=== PATIENT | female | born 1970 | race Caucasian/White ===

== ENCOUNTER → 2017-11-20 | Outpatient (CLI) | payer OTHER ==
[~2017-11-20] MED LIST: GABAPENTIN600 MG; PROTONIX20 MG; TEGRETOL200 MG; TIGAN100 MG/M2; TRAZODONE HCL5 GM
== END | disposition home or self-care (01) ==
LOC: WOUND MED 08:05
DX: L97.123 Non-pressure chronic ulcer of left thigh with necrosis of muscle (principal)
CPT/HCPCS: 11042; G0463; A4554; A4930; A6216; A6219

== ENCOUNTER → 2017-12-01 | Outpatient (CLI) | payer OTHER | END | disposition home or self-care (01) | LOC: WOUND CARE 09:19 | DX: L97.123 Non-pressure chronic ulcer of left thigh with necrosis of muscle (principal) | CPT/HCPCS: 11042; A4554; A4930; A6196; A6216; A6219 ==

== ENCOUNTER → 2017-12-08 | Outpatient (CLI) | payer OTHER | END | disposition home or self-care (01) | LOC: WOUND MED 07:52 | DX: L97.123 Non-pressure chronic ulcer of left thigh with necrosis of muscle (principal) | CPT/HCPCS: 11042; A4554; A4930; A6216; A6219 ==

== ENCOUNTER → 2017-12-15 | Outpatient (CLI) | payer OTHER | END | disposition home or self-care (01) | LOC: WOUND MED 08:41 | DX: L97.123 Non-pressure chronic ulcer of left thigh with necrosis of muscle (principal) | CPT/HCPCS: 11042; A4554; A4930; A6196; A6216; A6219 ==

== ENCOUNTER → 2017-12-22 | Outpatient (CLI) | payer OTHER | END | disposition home or self-care (01) | LOC: WOUND MED 08:08 | DX: L97.123 Non-pressure chronic ulcer of left thigh with necrosis of muscle (principal) | CPT/HCPCS: 11042; A4554; A4930; A6216 ==

== ENCOUNTER → 2017-12-29 | Outpatient (CLI) | payer OTHER | END | disposition home or self-care (01) | LOC: WOUND MED 10:00 | DX: L97.123 Non-pressure chronic ulcer of left thigh with necrosis of muscle (principal) | CPT/HCPCS: A4554; A4930; A6216; G0463 ==

== ENCOUNTER → 2018-01-05 | Outpatient (CLI) | payer OTHER | END | disposition home or self-care (01) | LOC: WOUND MED 08:41 → EDSTATUS 08:43 | DX: L97.123 Non-pressure chronic ulcer of left thigh with necrosis of muscle (principal) | CPT/HCPCS: 11042; A4554; A4930; A6216 ==

== ENCOUNTER → 2018-01-12 | Outpatient (CLI) | payer OTHER | END | disposition home or self-care (01) | LOC: WOUND MED 08:25 | DX: L97.123 Non-pressure chronic ulcer of left thigh with necrosis of muscle (principal) | CPT/HCPCS: 11042; A4554; A4930; A6216; A6219 ==

== ENCOUNTER → 2018-01-19 | Outpatient (CLI) | payer OTHER | END | disposition home or self-care (01) | LOC: WOUND MED 08:49 → EDSTATUS 15:34 | DX: L97.123 Non-pressure chronic ulcer of left thigh with necrosis of muscle (principal) | CPT/HCPCS: 11042; A4554; A4930; A6216; A6219 ==

== ENCOUNTER → 2018-01-26 | Outpatient (CLI) | payer OTHER | END | disposition home or self-care (01) | LOC: WOUND MED 08:41 | DX: L97.123 Non-pressure chronic ulcer of left thigh with necrosis of muscle (principal) | CPT/HCPCS: 11042; A4554; A4930; A6216; A6219 ==

== ENCOUNTER → 2018-02-01 | Emergency (ER) | payer OTHER | END | disposition home or self-care (01) | LOC: ER 11:33 | DX: G50.0 Trigeminal neuralgia (principal); R51 Headache ==

== ENCOUNTER → 2018-02-09 | Outpatient (CLI) | payer OTHER | END | disposition home or self-care (01) | LOC: WOUND MED 09:49 | DX: L97.123 Non-pressure chronic ulcer of left thigh with necrosis of muscle (principal) | CPT/HCPCS: 11042; A4554; A4930; A6216; A6219 ==

== ENCOUNTER → 2018-02-23 | Outpatient (CLI) | payer OTHER | END | disposition home or self-care (01) | LOC: WOUND MED 09:18 | DX: L97.123 Non-pressure chronic ulcer of left thigh with necrosis of muscle (principal) | CPT/HCPCS: G0463; A4554; A4930; A6216 ==

== ENCOUNTER → 2018-04-29 | Outpatient (CLI) | payer OTHER ==
[~2018-04-29] MED LIST changes: +CANABI MEDICINAL
== END | disposition home or self-care (01) ==
LOC: WOUND MED 08:22
DX: L97.112 Non-pressure chronic ulcer of right thigh with fat layer exposed (principal)
CPT/HCPCS: 11042; A4554; A4930; A6216; A6219

== ENCOUNTER → 2018-05-07 | Outpatient (CLI) | payer OTHER ==
[~2018-05-07] MED LIST changes: -CANABI MEDICINAL
== END | disposition home or self-care (01) ==
LOC: WOUND MED 09:08
DX: L97.112 Non-pressure chronic ulcer of right thigh with fat layer exposed (principal)
CPT/HCPCS: 11042; A4554; A4930; A6196; A6216; A6219

== ENCOUNTER → 2018-05-17 | Outpatient (CLI) | payer OTHER | END | disposition home or self-care (01) | LOC: WOUND MED 08:32 | DX: L97.112 Non-pressure chronic ulcer of right thigh with fat layer exposed (principal) | CPT/HCPCS: 11042; A4554; A4930; A6216 ==

== ENCOUNTER → 2018-05-24 | Outpatient (CLI) | payer OTHER ==
[~2018-05-24] MED LIST changes: +CANABI MEDICINAL
== END | disposition home or self-care (01) ==
LOC: WOUND MED 09:20
DX: L97.112 Non-pressure chronic ulcer of right thigh with fat layer exposed (principal)
CPT/HCPCS: 11042; A4554; A4930; A6216; A6219

== ENCOUNTER 2018-06-01 09:15 | Emergency (ER) | payer OTHER ==
[~2018-06-01] VITALS: Ht 157.5 cm; Wt 56.7 kg
[~2018-06-01 09:15] MED LIST changes: -CANABI MEDICINAL
[2018-06-01] MEDS ORDERED: CANABI MEDICINAL (09:29)
== END 2018-06-01 11:05 | disposition home or self-care (01) ==
LOC: ER 09:15
DX: G50.0 Trigeminal neuralgia (principal)

== ENCOUNTER 2018-07-01 16:05 | Emergency (ER) | payer OTHER ==
[~2018-07-01] VITALS: Ht 157.5 cm; Wt 72.6 kg
[~2018-07-01 16:05] MED LIST changes: +CANABI MEDICINAL
[2018-07-01] MEDS ORDERED: CLONAZEPAM2 MG PO (18:59)
[2018-07-01] MEDS ORDERED: BACLOFEN20 MG PO (18:59)
== END 2018-07-01 19:33 | disposition home or self-care (01) ==
LOC: ER 16:05
DX: G50.0 Trigeminal neuralgia (principal); G89.29 Other chronic pain

== ENCOUNTER 2018-09-06 09:58 | Emergency (ER) | payer OTHER ==
[~2018-09-06] VITALS: Ht 157.5 cm; Wt 63.0 kg
[~2018-09-06 09:58] MED LIST changes: +BACLOFEN20 MG PO; +CLONAZEPAM2 MG PO
[2018-09-06] MEDS ORDERED: NEURONTIN300 MG PO (10:05)
[2018-09-06] MEDS ORDERED: TRAZODONE HCL100 MG PO (10:06)
== END 2018-09-06 14:07 | disposition home or self-care (01) ==
LOC: ER 09:58
DX: G50.0 Trigeminal neuralgia (principal); R10.84 Generalized abdominal pain

== ENCOUNTER → 2019-02-03 | Outpatient (CLI) | payer OTHER ==
[~2019-02-03] MED LIST changes: +NEURONTIN300 MG PO; +TRAZODONE HCL100 MG PO
== END | disposition home or self-care (01) ==
LOC: WOUND CARE 09:27 → WOUND MED 09:27
DX: L97.122 Non-pressure chronic ulcer of left thigh with fat layer exposed (principal)
CPT/HCPCS: 11042; G0463; A4554; A4930; A6216

== ENCOUNTER → 2019-02-10 | Outpatient (CLI) | payer OTHER | END | disposition home or self-care (01) | LOC: WOUND MED 09:27 | DX: L97.122 Non-pressure chronic ulcer of left thigh with fat layer exposed (principal) | CPT/HCPCS: 11042; A4554; A4930; A6216; A6219 ==

== ENCOUNTER → 2019-02-17 | Outpatient (CLI) | payer OTHER | END | disposition home or self-care (01) | LOC: WOUND MED 09:12 | DX: L97.122 Non-pressure chronic ulcer of left thigh with fat layer exposed (principal) | CPT/HCPCS: 11042; A4554; A4930; A6021; A6216; A6219 ==

== ENCOUNTER → 2019-02-24 | Outpatient (CLI) | payer OTHER | END | disposition home or self-care (01) | LOC: WOUND MED 09:16 | DX: L97.122 Non-pressure chronic ulcer of left thigh with fat layer exposed (principal) | CPT/HCPCS: 11042; A4554; A4930; A6216; A6219 ==

== ENCOUNTER → 2019-03-03 | Outpatient (CLI) | payer OTHER | END | disposition home or self-care (01) | LOC: WOUND MED 09:26 | DX: L97.122 Non-pressure chronic ulcer of left thigh with fat layer exposed (principal); L98.411 Non-pressure chronic ulcer of buttock limited to breakdown of skin | CPT/HCPCS: 11042; A4554; A4930; A6212; A6216; A6219 ==

== ENCOUNTER → 2019-03-10 | Outpatient (CLI) | payer OTHER | END | disposition home or self-care (01) | LOC: WOUND MED 09:19 | DX: L97.122 Non-pressure chronic ulcer of left thigh with fat layer exposed (principal); L98.411 Non-pressure chronic ulcer of buttock limited to breakdown of skin | CPT/HCPCS: G0463; A4554; A4930; A6216 ==

== ENCOUNTER 2022-10-31 14:16 | Emergency (ER) | payer OTHER ==
[~2022-10-31] VITALS: Ht 157.5 cm; Wt 56.7 kg
== END 2022-10-31 18:57 | disposition home or self-care (01) ==
LOC: ER 14:16
DX: G50.0 Trigeminal neuralgia (principal); Z92.29 Personal history of other drug therapy; Z79.891 Long term (current) use of opiate analgesic

== ENCOUNTER 2022-11-23 15:01 | Emergency (ER) | payer OTHER ==
[~2022-11-23] VITALS: Ht 157.5 cm; Wt 54.4 kg
== END 2022-11-23 18:50 | disposition home or self-care (01) ==
LOC: ER 15:01
DX: G50.9 Disorder of trigeminal nerve, unspecified (principal)

== ENCOUNTER 2022-12-20 15:42 | Emergency (ER) | payer OTHER ==
[~2022-12-20] VITALS: Ht 165.1 cm; Wt 56.7 kg
== END 2022-12-20 17:58 | disposition home or self-care (01) ==
LOC: ER 15:42
DX: G50.9 Disorder of trigeminal nerve, unspecified (principal); Z88.6 Allergy status to analgesic agent

== ENCOUNTER 2023-05-29 08:42 | Emergency (ER) | payer OTHER ==
[~2023-05-29] VITALS: Ht 157.5 cm; Wt 53.5 kg
[2023-05-29] MEDS ORDERED: CLEOCIN HCL300 MG PO (10:34)
== END 2023-05-29 10:41 | disposition home or self-care (01) ==
LOC: ER 08:42
DX: G50.0 Trigeminal neuralgia (principal); M94.0 Chondrocostal junction syndrome [Tietze]; Z88.6 Allergy status to analgesic agent; Z88.8 Allergy status to other drugs, medicaments and biological substances